=== PATIENT | male | born 1965 | race Caucasian/White ===

== ENCOUNTER 2016-12-25 13:01 | Observation (INO) | payer BC ==
--- NOTE | 2016-12-25 13:27 | ER Document Report ---
ED Medical Screen (RME) - General Chief Complaint: Facial Droop Stated Complaint: CHEST PAIN Time Seen by Provider: 12/25/16 13:22 Mode of Arrival: Ambulatory Information source: Patient, Relative TRAVEL OUTSIDE OF THE [place] IN LAST 30 DAYS: No - HPI Patient complains to provider of: Generalized weakness, left-sided facial droop Onset: Other - 9 AM Onset/Duration: Persistent Quality of pain: No pain Associated Symptoms: Weakness Exacerbated by: Denies Relieved by: Denies Similar symptoms previously: No Recently seen / treated by doctor: No Notes: 12/25/16 13:26 Patient is a 51-year-old male who presents to the emergency room complaining of generalized weakness, states it started around 9:00 this morning, when office staff at his office then told him he appeared to have facial asymmetry he presented to the emergency room for evaluation, he denies any chest pain or shortness of breath, he does report a mild headache, no history of similar symptoms previously, no extremity weakness or difficulty ambulating - Related Data Allergies/Adverse Reactions: No Known Allergies Allergy (Verified 12/25/16 13:05) Past Medical History Renal/ Medical History: Denies: Hx Peritoneal Dialysis Physical Exam - Vital signs Vitals: Temp Pulse Resp BP Pulse Ox 98.0 F 95 20 145/94 H 96 12/25/16 13:09 12/25/16 13:09 12/25/16 13:09 12/25/16 13:09 12/25/16 13:09 Course - Vital Signs Vital signs: Temp Pulse Resp BP Pulse Ox 98.0 F 95 20 145/94 H 96 12/25/16 13:09 12/25/16 13:09 12/25/16 13:09 12/25/16 13:09 12/25/16 13:09
--- NOTE | 2016-12-25 14:05 | RADIOLOGY REPORT (SQ) ---
EXAM DESCRIPTION: CT HEAD WITHOUT COMPLETED DATE/TIME: 12/25/2016 1:40 pm REASON FOR STUDY: left facial droop COMPARISON: None. TECHNIQUE: Axial images acquired through the brain without intravenous contrast. Images reviewed wi th bone, brain and subdural windows. Images stored on PACS. All CT scanners at this facility use dose modulation, iterative reconstruction, and/or weight based d osing when appropriate to reduce radiation dose to as low as reasonably achievable (ALARA). [facility]: Dose Right [facility]: CareDose [facility]: Dose Right [facility]: Teradose 4D [facility]: Smart b-datum RADIATION DOSE: mGy. LIMITATIONS: None. FINDINGS: VENTRICLES: Normal size and contour. CEREBRUM: No masses. No hemorrhage. No midline shift. Normal noel/white matter differentiation. N o evidence for acute infarction. CEREBELLUM: No masses. No hemorrhage. No alteration of density. No evidence for acute infarction. EXTRAAXIAL SPACES: No fluid collections. No masses. ORBITS AND GLOBE: No intra- or extraconal masses. Normal contour of globe without masses. CALVARIUM: No fracture. PARANASAL SINUSES: No fluid or mucosal thickening. SOFT TISSUES: No mass or hematoma. OTHER: No other significant finding. IMPRESSION: NORMAL BRAIN CT WITHOUT CONTRAST. TECHNICAL DOCUMENTATION: JOB ID: [id number] Quality ID # [id number]: Final reports with documentation of one or more dose reduction techniques (e.g., Au tomated exposure control, adjustment of the mA and/or kV according to patient size, use of iterative reconstruction technique) 2010 [email or web address]- All Rights Reserved
[2016-12-25 14:20] LABS: ABSOLUTE LYMPHOCYTES (AUTO) 1.9 10^3/uL (0.5-4.7); ABSOLUTE MONOCYTES (AUTO) 0.5 10^3/uL (0.1-1.4); BASOPHILS % (AUTO) 0.5 % (0-2); EOSINOPHILS % (AUTO) 0.4 % (0-6); HEMATOCRIT 45.3 % (37.9-51.0); HEMOGLOBIN 15.9 g/dL (13.5-17.0); HGB HCT DIFFERENCE 2.4; LYMPHOCYTES % (AUTO) 25.4 % (13-45); MEAN CORPUSCULAR HGB CONC 35.1 g/dL (32.0-36.0); MEAN CORPUSCULAR VOLUME 88 fl (80-97); MONOCYTES % (AUTO) 6.1 % (3-13); RED BLOOD COUNT 5.13 10^6/uL (4.35-5.55); RED CELL DISTRIBUTION WIDTH 12.8 % (11.5-14.0); SEGMENTED NEUTROPHILS % (AUTO) 67.6 % (42-78); WHITE BLOOD COUNT 7.4 10^3/uL (4.0-10.5)
[2016-12-25 14:25] LABS: PROTHROMBIN TIME 12.8 SEC (11.4-15.4)
[2016-12-25 14:26] LABS: PARTIAL THROMBOPLASTIN TIME 29.8 SEC (23.5-35.8)
--- NOTE | 2016-12-25 14:32 | RADIOLOGY REPORT (SQ) ---
EXAM DESCRIPTION: CHEST SINGLE VIEW COMPLETED DATE/TIME: 12/25/2016 1:47 pm REASON FOR STUDY: left facial droop COMPARISON: None. EXAM PARAMETERS: NUMBER OF VIEWS: One view. TECHNIQUE: Single frontal radiographic view of the chest acquired. RADIATION DOSE: NA LIMITATIONS: None. FINDINGS: LUNGS AND PLEURA: No opacities, masses or pneumothorax. No pleural effusion. MEDIASTINUM AND HILAR STRUCTURES: No masses. Contour normal. HEART AND VASCULAR STRUCTURES: Heart normal in size. Normal vasculature. BONES: No acute findings. HARDWARE: None in the chest. OTHER: No other significant finding. IMPRESSION: NO ACUTE RADIOGRAPHIC FINDING IN THE CHEST. TECHNICAL DOCUMENTATION: JOB ID: [id number]
[2016-12-25 14:44] LABS: ALANINE AMINOTRANSFERASE 80 U/L (21-72); ALBUMIN 4.4 g/dL (3.5-5.0); ALKALINE PHOSPHATASE 98 U/L (38-126); ANION GAP 12 (5-19); ASPARTATE AMINO TRANSFERASE 54 U/L (17-59); BILIRUBIN,DIRECT 0.4 mg/dL (0.0-0.4); BILIRUBIN,TOTAL 0.8 mg/dL (0.2-1.3); BLOOD UREA NITROGEN 9 mg/dL (7-20); CALCIUM 9.3 mg/dL (8.4-10.2); CARBON DIOXIDE 26 mmol/L (22-30); CHLORIDE 104 mmol/L (98-107); CREATINE KINASE 49 U/L (55-170); GLUCOSE 115 mg/dL (75-110); SODIUM 141.7 mmol/L (137-145); TOTAL PROTEIN 7.7 g/dL (6.3-8.2)
[2016-12-25 14:56] LABS: CREATINE KINASE MB 0.69 ng/mL (<4.55); TROPONIN I < 0.012 ng/mL
--- NOTE | 2016-12-25 16:11 | ER Document Report ---
ED General - General Chief Complaint: Facial Droop Stated Complaint: CHEST PAIN Time Seen by Provider: 12/25/16 13:22 Mode of Arrival: Ambulatory TRAVEL OUTSIDE OF THE [place] IN LAST 30 DAYS: No - HPI Patient complains to provider of: Facial droop Notes: Patient presents today for left facial droop. Patient was at his place of employment when his family employee states that he did not look well and was seen having left facial droop. Patient denies any past medical history denies any history of trauma denies any past medical history. Patient states symptoms occurred around 9-930. Patient presented to the ER at around 130. Patient at this time would not be a candidate for TPA. Patient also is complaining of dizziness. Patient states dizziness with moving around and also sitting still. Patient never had dizziness like this before. Denies any recent antibiotics denies any recent travel. - Related Data Allergies/Adverse Reactions: No Known Allergies Allergy (Verified 12/25/16 13:05) Home Medications: Current Home Medications Multivitamin [Daily Multiple Vitamin] 1 tab PO DAILY 12/25/16 [History] Past Medical History - General Information source: Patient, Relative - Social History Smoking Status: Never Smoker Chew tobacco use (# tins/day): No Frequency of alcohol use: None Drug Abuse: None Family History: Reviewed & Not Pertinent Patient has suicidal ideation: No Patient has homicidal ideation: No - Past Medical History Cardiac Medical History: Reports: Hx Hypertension Renal/ Medical History: Denies: Hx Peritoneal Dialysis Review of Systems - Review of Systems Constitutional: No symptoms reported EENT: No symptoms reported Cardiovascular: No symptoms reported Respiratory: No symptoms reported Gastrointestinal: No symptoms reported Genitourinary: No symptoms reported Male Genitourinary: No symptoms reported Musculoskeletal: No symptoms reported Skin: No symptoms reported Hematologic/Lymphatic: No symptoms reported Neurological/Psychological: Other - Facial droop dizziness -: Yes All other systems reviewed and negative Physical Exam - Vital signs Vitals: Temp Pulse Resp BP Pulse Ox 98.0 F 95 20 145/94 H 96 12/25/16 13:09 12/25/16 13:09 12/25/16 13:09 12/25/16 13:09 12/25/16 13:09 Interpretation: Normal - General General appearance: Appears well, Alert - HEENT Head: Normocephalic, Atraumatic Eyes: Normal Pupils: PERRL - Respiratory Respiratory status: No respiratory distress Chest status: Nontender Breath sounds: Normal Chest palpation: Normal - Cardiovascular Rhythm: Regular Heart sounds: Normal auscultation Murmur: No - Abdominal Inspection: Normal Distension: No distension Bowel sounds: Normal Tenderness: Nontender Organomegaly: No organomegaly - Back Back: Normal, Nontender - Extremities General upper extremity: Normal inspection, Nontender, Normal color, Normal ROM , Normal temperature General lower extremity: Normal inspection, Nontender, Normal color, Normal ROM , Normal temperature, Normal weight bearing. No: Zach's sign - Neurological Neuro grossly intact: Yes Cognition: Normal Orientation: AAOx4 Idris Coma Scale Eye Opening: Spontaneous [place] S[place] Coma Scale Verbal: Oriented Idris Coma Scale Motor: Obeys Commands Idris Coma Scale Total: 15 Speech: Normal Cranial nerves: Facial palsy Motor strength normal: LUE, RUE, LLE, RLE Sensory: Normal - Psychological Associated symptoms: Normal affect, Normal mood - Skin Skin Temperature: Warm Skin Moisture: Dry Skin Color: Normal Course - Re-evaluation Re-evalutation: 12/25/16 18:57 Coming in for evaluation of facial drooping. As asymmetrical smile. Concern for possible stroke. Patient was not TPA as that some of his dizziness and facial droop did resolve while here in the ER. Patient does have mild abnormality of his upper eyelid family is unsure if this is normal for the patient or not possibly early Traore's palsy however concern for stroke therefore referred to the hospitalist for further evaluation and admission - Vital Signs Vital signs: Temp Pulse Resp BP Pulse Ox 98.0 F 78 19 158/63 H 96 12/25/16 13:09 12/25/16 15:00 12/25/16 18:01 12/25/16 18:01 12/25/16 18:01 - Laboratory Result Diagrams: 12/25/16 14:03 12/25/16 14:03 Laboratory results interpreted by me: 12/25/16 14:03 Glucose 115 H ALT 80 H Creatine Kinase 49 L Discharge - Discharge Clinical Impression: Facial droop, Dizziness Condition: Good Disposition: ADMITTED OBSERVATION Admitting Provider: [facility] Admitted: [facility]
[2016-12-25] MEDS ORDERED: ACETAMINOPHEN 650 MG SUPP.RECT PR PRN (16:28)
[2016-12-25] MEDS ORDERED: ASPIRIN 81 MG TABLET, CHEWABLE PO ONE (16:39)
--- NOTE | 2016-12-25 16:57 | PDOC H&P ---
History of Present Illness Admission Date/PCP: ODALYS KEYS MD History of Present Illness: DIEGO WILLAMS is a 51 year old male with a past medical history of hypertension previously managed by diet restriction who presents to the service with asymmetric smile. The patient woke up this morning shaved and then went to work at his job at the [employer]. He got to work 1 of his coworkers told him that he looked bad smile was droopy. Get anything of it and proceeded to go to work. He had some issues with being able to count money while at work. [place] a little dizzy. Worker noted that he had a change in speech and felt that it was slurred: However, the patient did not notice anything. He denies ever having weakness. He said he left for lunch and went to go and see his in the first thing his told him with that his face was droopy. Therefore, he came into the hospital. In Emergency room underwent CT scan of the head which was negative. Patient currently denies any chest pain, shortness of breath, weakness, dizziness. Past Medical History Cardiac Medical History: Reports: Hypertension Past Surgical History Past Surgical History: Reports: None Social History Information Source: Patient, Relative Occupation: teller Lives with: Spouse/Significant other Smoking Status: Never Smoker Frequency of Alcohol Use: Occasional - 1-2 drinks a week either wine, liquor, or beer Hx Recreational Drug Use: No Hx Prescription Drug Abuse: No - Advance Directive Resuscitation Status: Full Code Family History Family History: DM - Father developed diabetes in childhood Parental Family History Reviewed: Yes Children Family History Reviewed: Yes Sibling(s) Family History Reviewed.: Yes Medication/Allergy Allergies/Adverse Reactions: No Known Allergies Allergy (Verified 12/25/16 13:05) Review of Systems Review of Systems: Review of systems is positive as per HPI in addition to this the patient has had diarrhea off and on the last couple of weeks. He denies chest pain shortness of breath, nausea, vomiting, constipation, diarrhea on a usual basis, blood in the stool, blood in the urine, coughing up blood, throwing up blood, heat or cold intolerance, dysuria, fevers, chills, unintentional weight loss, or arthritis Physical Exam Vital Signs: Temp Pulse Resp BP Pulse Ox 98.0 F 78 15 155/90 H 97 12/25/16 13:09 12/25/16 15:00 12/25/16 16:01 12/25/16 16:01 12/25/16 16:01 Intake & Output 12/24/16 12/25/16 12/26/16 06:59 06:59 06:59 Weight 87 kg Physical exam: General: This is a well-developed well-nourished overweight white male resting in bed currently in no acute distress HEENT normocephalic atraumatic. Trachea is midline. No submandibular lymphadenopathy. No scleral icterus. Mucous membranes. Dentition fair. Heart: Regular rate and rhythm no murmurs rubs or gallops. Lungs: Clear to auscultation bilaterally with equal rise and fall of the chest. Abdomen: Soft, nontender nondistended. Normoactive bowel sounds. Extremities: No clubbing cyanosis or edema. Neuro: Strength is 5 out of 5 in both the upper and lower extremities bilaterally. Has decreased sensation first branch of the trigeminal nerve as flattened nasolabial fold on the left. No Tongue deviation or uvular deviation. Finger to nose exam is intact. Heel-crespo maneuver is intact. Mixer Operator Raw Salt 5/5. Speech is fluent. Left ptosis. Shoulder shrug is intact. Pupils reactive. Results Laboratory Results: 12/25/16 14:03 12/25/16 14:03 12/25/16 12/25/16 14:03 14:03 WBC 7.4 RBC 5.13 Hgb 15.9 Hct 45.3 MCV 88 MCH 31.0 MCHC 35.1 RDW 12.8 Plt Count 173 Seg Neutrophils % 67.6 Lymphocytes % 25.4 Monocytes % 6.1 Eosinophils % 0.4 Basophils % 0.5 Absolute Neutrophils 5.0 Absolute Lymphocytes 1.9 Absolute Monocytes 0.5 Absolute Eosinophils 0.0 Absolute Basophils 0.0 Sodium 141.7 Potassium 4.0 Chloride 104 Carbon Dioxide 26 Anion Gap 12 BUN 9 Creatinine 0.70 Est GFR ( Amer) > 60 Est GFR (Non-Af Amer) > 60 Glucose 115 H Calcium 9.3 Total Bilirubin 0.8 AST 54 ALT 80 H Alkaline Phosphatase 98 Total Protein 7.7 Albumin 4.4 12/25/16 12/25/16 14:03 14:03 Creatine Kinase 49 L CK-MB (CK-2) 0.69 Troponin I < 0.012 Impressions: Chest X-Ray 12/25/16 13:25 IMPRESSION: NO ACUTE RADIOGRAPHIC FINDING IN THE CHEST. Head CT 12/25/16 13:25 IMPRESSION: NORMAL BRAIN CT WITHOUT CONTRAST. Assessment & Plan - Diagnosis (1) Facial droop Plan: CVA versus Traore's palsy. CT of the head was negative. Will send the patient for MRI. Give him a dose of aspirin. Check cholesterol levels in the morning. Allow permissive hypertension. (2) Hypertension Plan: Pressure at the bedside is 155/90. As needed hydralazine for those pressures over 180. - Time Time Spent: 50 to 70 Minutes Anticipated discharge: Home Within: within 24 hours
[2016-12-25] MEDS ORDERED: HYDRALAZINE HCL INJ/PF 20 MG/1 ML SDV IV PRN (16:58)
[2016-12-25] MEDS ORDERED: ENOXAPARIN SODIUM INJ 40 MG/0.4 ML DISP.SYRIN SUBCUT ONE (18:00)
--- NOTE | 2016-12-26 00:19 | EKG REPORT ---
SEVERITY:- OTHERWISE NORMAL ECG - SINUS RHYTHM BORDERLINE LEFT AXIS DEVIATION : Confirmed by: Landy Cortez 26-Dec-2016 00:18:38
[2016-12-26 06:42] LABS: CHOLESTEROL 182.64 mg/dL (0-200); Direct HDL 30 mg/dL (>40); TRIGLYCERIDES 142 mg/dL (<150)
[2016-12-26 06:53] LABS: DIRECT LDL 121 mg/dL (<100)
[2016-12-26] MEDS ORDERED: ENOXAPARIN SODIUM INJ 40 MG/0.4 ML DISP.SYRIN SUBCUT SCH (08:00)
[2016-12-26 08:30] VITALS: BP 146/84
--- NOTE | 2016-12-26 08:43 | RADIOLOGY REPORT (SQ) ---
EXAM DESCRIPTION: MRI HEAD COMBO COMPLETED DATE/TIME: 12/25/2016 11:09 pm REASON FOR STUDY: suspicion of stroke COMPARISON: None. TECHNIQUE: Multiplanar imaging includes noncontrasted T1, T2, FLAIR, and Diffusion with ADC map seq uences. Contrast enhanced T1 images. Images stored on PACS. CONTRAST TYPE AND DOSE: 20 mL Prohance. RENAL FUNCTION: GFR > 60. LIMITATIONS: None. FINDINGS: ANATOMY: No anomalies. Normal vascular flow voids. Pituitary fossa normal. CSF SPACES: Normal size and contour. No hemorrhage. CEREBRUM: A few high-signal intensity lesions scattered throughout the white matter on FLAIR imaging with distribution suggesting chronic microvascular ischemic change. Sulci and gyri normal in size and contour. No evidence of hemorrhage, mass or extraaxial fluid collection. No enhancing lesions. POSTERIOR FOSSA: No signal alteration. No hemorrhage. No edema, masses or mass effect. Internal audit ory Canals and cerebello-pontine angles normal. Increased signal in the left mastoid air cells. DIFFUSION: Focal area of restricted diffusion in the right lentiform nucleus. ORBITS: No masses. Globes normal. PARANASAL SINUSES: No fluid levels. Mucosa normal. OTHER: No other significant finding. IMPRESSION: 1. RESTRICTED DIFFUSION IN THE RIGHT LENTIFORM NUCLEUS CONSISTENT WITH ACUTE INFARCT. 2. INFLAMMATORY CHANGES IN THE LEFT MASTOID AIR CELLS. MUCOSAL NODULE IN THE LEFT MAXILLARY SINUS. 3. NO ENHANCING LESIONS. MINIMAL MICROVASCULAR ISCHEMIC CHANGE. TECHNICAL DOCUMENTATION: JOB ID: [id number] [employer]- All Rights Reserved
[2016-12-26] MEDS ORDERED: ASPIRIN 325 MG TABLET, ENT COATED PO SCH (10:00)
--- NOTE | 2016-12-26 10:11 | RADIOLOGY REPORT (SQ) ---
EXAM DESCRIPTION: MRA HEAD WITHOUT COMPLETED DATE/TIME: 12/25/2016 11:10 pm REASON FOR STUDY: suspect stroke COMPARISON: None. TECHNIQUE: Axial 3-D [id number]-aa-[id number] acquisition imaging performed through the brain in the area of t he ram[place] of [place]. Images reformatted using 3-D MIPS. LIMITATIONS: None. FINDINGS: SOURCE IMAGES: No unexpected findings on source images. No large masses. 3-D MIP: No aneurysm. No occlusions. No significant stenosis. OTHER: No other significant finding. IMPRESSION: NORMAL MRA OF THE [place] OF [place]. TECHNICAL DOCUMENTATION: JOB ID: [id number] [employer]- All Rights Reserved
--- NOTE | 2016-12-26 10:17 | RADIOLOGY REPORT (SQ) ---
EXAM DESCRIPTION: MRA NECK COMBO COMPLETED DATE/TIME: 12/25/2016 11:10 pm REASON FOR STUDY: suspect stroke COMPARISON: None. TECHNIQUE: MRA of the carotid and vertebral arteries was performed using 2D and 3D ebhl-od-iestqb te chniques without and with the use of gadolinium. 3-D MIPs performed at the workstation and stored on PACS. CONTRAST TYPE AND DOSE: 20 mL Prohance. RENAL FUNCTION: GFR > 60. LIMITATIONS: None. FINDINGS: GREAT VESSEL ORIGINS: Normal. No stenoses. VERTEBRAL ARTERIES: No stenoses. No evidence for aneurysm or dissection. RIGHT CAROTID SYSTEM: No significant stenosis. LEFT CAROTID SYSTEM: No significant stenosis. OTHER: No other significant finding. IMPRESSION: NORMAL MRA OF THE CAROTIDS WITH AND WITHOUT CONTRAST. COMMENT: Quality ID #[id number]: Measurements of distal internal carotid diameter were used as the denomina tor for stenosis measurement. TECHNICAL DOCUMENTATION: JOB ID: [id number] [employer]- All Rights Reserved
--- NOTE | 2016-12-26 17:20 | PDOC DISCHARGE SUMMARY ---
General - Admit/Disc Date/PCP Admission Date/Primary Care Provider: 12/25/16 16:28 ODALYS KEYS MD Discharge Date: 12/26/16 - Discharge Diagnosis (1) CVA (cerebral vascular accident) Is this a current diagnosis for this admission?: YesSummary: small right infarct seen on MRI with persistent left facial droop, no other residual deficits that warrant speech, occupational or physical therapy. maximize risk modification as outlined below. (2) Diabetes Is this a current diagnosis for this admission?: YesSummary: new diagnosis, A1c 6.5; will start metformin, counseled regarding diet, exercise and lifestyle changes; f/u with PCP in 2 weeks for further treatment recs (3) Hyperlipidemia Is this a current diagnosis for this admission?: YesSummary: LDL not at goal (<100), start statin Tx, f/u with PCP for f/u labs (4) Hypertension Is this a current diagnosis for this admission?: YesSummary: start ACEi for its benefits regarding stroke and HTN. will need f/u with PCP for further titration - Additional Information Resuscitation Status: Full Code Discharge Diet: Cardiac Discharge Activity: Activity As Tolerated Home Medications: Multivitamin [Daily Multiple Vitamin] 1 tab PO DAILY 12/25/16 Aspirin [Aspir-Kerri] 325 mg PO DAILY PRN #1 pkg 12/26/16 Atorvastatin Calcium 40 mg PO QHS #30 tablet 12/26/16 Lisinopril [Zestril] 5 mg PO DAILY #30 tablet 12/26/16 Metformin HCl [Glucophage] 500 mg PO BID #60 tablet 12/26/16 History of Present Illness Patient complains of: facial droop and slurred speech History of Present Illness: DIEGO WILLAMS is a 51 year old male with a past medical history of hypertension previously managed by diet restriction who presents to the service with asymmetric smile. The patient woke up this morning shaved and then went to work at his job at the [employer]. He got to work 1 of his coworkers told him that he looked bad smile was droopy. Get anything of it and proceeded to go to work. He had some issues with being able to count money while at work. [place] a little dizzy. Worker noted that he had a change in speech and felt that it was slurred: However, the patient did not notice anything. He denies ever having weakness. He said he left for lunch and went to go and see his in the first thing his told him with that his face was droopy. Therefore, he came into the hospital. In Emergency room underwent CT scan of the head which was negative. Patient currently denies any chest pain, shortness of breath, weakness, dizziness. Hospital Course Hospital Course: he was admitted and monitored overnight with good improvement in his symptoms. his workup revealed acute ischemic CVA on MRI, diabetes with Hg A1c 6.5, acc HTN and poorly controlled lipids. he was started on appropriate primary and secondary prevention medications, is hemodynamically stable for d/c home at this time. I spent over 30 mins at the bedside reviewing his evaluation, counseling regarding diet and lifestyle changes and answering his and his ' s questions to the best of my ability. s/s of stroke were discussed with instructions to present to the ED within 3hrs onset of symptoms. Physical Exam Vital Signs: Temp Pulse Resp BP Pulse Ox 97.2 F 68 16 146/84 H 98 12/26/16 12:45 12/26/16 12:45 12/26/16 12:45 12/26/16 12:00 12/26/16 12:45 Intake & Output 12/25/16 12/26/16 12/27/16 06:59 06:59 06:59 Intake Total 10 Balance 10 Weight 86.5 kg General appearance: PRESENT: no acute distress, well-developed, well-nourished Head exam: PRESENT: atraumatic, normocephalic Eye exam: PRESENT: EOMI, PERRLA. ABSENT: conjunctival injection, scleral icterus Mouth exam: PRESENT: moist, neck supple Neck exam: ABSENT: carotid bruit, tracheal deviation Respiratory exam: PRESENT: clear to auscultation mykel, unlabored Cardiovascular exam: PRESENT: RRR. ABSENT: systolic murmur Neurological exam: PRESENT: alert, awake, oriented to person, oriented to place , oriented to time, oriented to situation. ABSENT: CN II-XII grossly intact - left corner of his mouth remains down turned and left form maker plaster ever so slightly diminished to the Rt, o/w no deficits Results Laboratory Results: 12/26/16 05:33 Triglycerides 142 Cholesterol 182.64 LDL Cholesterol Direct 121 H VLDL Cholesterol 28.0 HDL Cholesterol 30 L Impressions: Brain MRI with MRA 12/25/16 00:00 IMPRESSION: NORMAL MRA OF THE [place] OF [place]. Head MRI 12/25/16 00:00 IMPRESSION: 1. RESTRICTED DIFFUSION IN THE RIGHT LENTIFORM NUCLEUS CONSISTENT WITH ACUTE INFARCT. 2. INFLAMMATORY CHANGES IN THE LEFT MASTOID AIR CELLS. MUCOSAL NODULE IN THE LEFT MAXILLARY SINUS. 3. NO ENHANCING LESIONS. MINIMAL MICROVASCULAR ISCHEMIC CHANGE. Neck MRA 12/25/16 00:00 IMPRESSION: NORMAL MRA OF THE CAROTIDS WITH AND WITHOUT CONTRAST. Chest X-Ray 12/25/16 13:25 IMPRESSION: NO ACUTE RADIOGRAPHIC FINDING IN THE CHEST. Head CT 12/25/16 13:25 IMPRESSION: NORMAL BRAIN CT WITHOUT CONTRAST. Qualifiers PATEINT BEING DISCHARGED WITH ANY OF THE FOLLOWING DIAGNOSIS?: Stroke VTE patient discharged on overlapping Therapy?: No Reason(s) for not prescribing Overlap Therapy:: Not indicated Stroke Pt being discharged on Anti-thrombolytic therapy?: Yes Stroke Pt being discharged on Anti-coagulation therapy?: No Reason(s) for not prescribing Anti-coagulation therapy:: Not indicated Stroke Pt being discharged on Statins?: Yes Plan Discharge Plan: f/u with PCP in one to two weeks Time Spent: Greater than 30 Minutes
== END 2016-12-26 13:15 | disposition home or self-care (01) ==
LOC: ER 13:01 → EH 16:28 → UNDOADMOB 16:59 → EH 16:59 → 3S 12-26 02:00
PROVIDERS: ADMIT Hospitalist; ATTEND Hospitalist
DX: I63.9 Cerebral infarction, unspecified (principal); R29.810 Facial weakness; E11.9 Type 2 diabetes mellitus without complications; E78.5 Hyperlipidemia, unspecified; I10 Essential (primary) hypertension; E66.3 Overweight; Z83.3 Family history of diabetes mellitus; Z68.30 Body mass index [BMI] 30.0-30.9, adult
CPT/HCPCS: 93005; 99285; 96372; 36415 ×2; 82553; 82550; 85025; 85610; 85730; 80053; 84484; 83036; 80061; 70553; 70544; 70549; 71010; 70450; 93010; A9576; J1650 ×2; J3490; G0378

== ENCOUNTER 2017-03-30 20:35 | Emergency (ER) | payer BC ==
[2017-03-30 20:59] VITALS: BP 150/79
--- NOTE | 2017-03-30 21:35 | RADIOLOGY REPORT (SQ) ---
EXAM DESCRIPTION: FOOT RIGHT COMPLETE COMPLETED DATE/TIME: 03/30/2017 9:26 pm REASON FOR STUDY: injury COMPARISON: None. NUMBER OF VIEWS: Three views. TECHNIQUE: AP, lateral and oblique radiographic images acquired of the right foot. LIMITATIONS: None. FINDINGS: MINERALIZATION: Normal. BONES: No acute fracture or dislocation. No worrisome bone lesions. JOINTS: No effusions. SOFT TISSUES: No soft tissue swelling. No foreign body. OTHER: No other significant finding. IMPRESSION: NEGATIVE STUDY OF THE RIGHT FOOT. NO RADIOGRAPHIC EVIDENCE OF ACUTE INJURY. TECHNICAL DOCUMENTATION: JOB ID: [id number] [employer]- All Rights Reserved
--- NOTE | 2017-03-30 22:30 | ER Document Report ---
HPI - HPI Patient complains to provider of: stubbed toe, nail lifted Onset: Just prior to arrival Onset/Duration: Sudden Quality of pain: Throbbing Pain Level: 3 Context: 51 yo male stubbed left great toe and the thick nail partially lifted. throbbing Associated Symptoms: None Exacerbated by: Denies Relieved by: Denies - ROS ROS below otherwise negative: Yes Systems Reviewed and Negative: Yes All other systems reviewed and negative - DERM Skin Color: Normal, [place] Past Medical History - General Information source: Patient - Social History Smoking Status: Never Smoker Frequency of alcohol use: None Drug Abuse: None Lives with: Spouse/Significant other Family History: Reviewed & Not Pertinent - Past Medical History Cardiac Medical History: Reports: Hx Hypertension Renal/ Medical History: Denies: Hx Peritoneal Dialysis Surgical Hx: Negative Vertical Provider Document - CONSTITUTIONAL Agree With Documented VS: Yes Exam Limitations: No Limitations General Appearance: No Apparent Distress - INFECTION CONTROL TRAVEL OUTSIDE OF THE [place] IN LAST 30 DAYS: No - RESPIRATORY O2 Sat by Pulse Oximetry: 95 - MUSCULOSKELETAL/EXTREMETIES Musculoskeletal/Extremeties: MAEW, FROM, Tender - dorsal left great toe, small bruise at nailbed. 2/3 of nail is lifted, full atttachment at the nail bed. - NEURO Level of Consciousness: Awake, Alert Motor/Sensory: No Motor Deficit, No Sensory Deficit Course - Re-evaluation Re-evalutation: 04/01/17 15:53 late entry, xray negative per rad - Vital Signs Vital signs: Temp Pulse Resp BP Pulse Ox 98.0 F 95 16 150/79 H 95 03/30/17 20:57 03/30/17 20:57 03/30/17 20:57 03/30/17 20:57 03/30/17 20:57 Discharge - Discharge Clinical Impression: Partial left great toenail lifting Condition: Good Disposition: HOME, SELF-CARE Instructions: Anti-Inflammatory Medication ([facility]), Avulsed Nail ([facility]) Additional Instructions: post op shoe for comfort soak in warm soapy water daily keep covered to avoid further injury keep nail clipped or filed as it grows out see enamel drier for any problems to er if worse Please complete the patient satisfaction survey if you get one, and return it.. If you do not receive a survey, then you can go to the [facility] website, [email or web address] and place your comments about your very good care. Thank you very much. It was a pleasure being your medical provider today. Prescriptions: Ibuprofen [Motrin 800 mg Tablet] 800 mg PO Q8HP PRN #30 tablet PRN Reason: Referrals: BENNIE SALAZAR DPM [ACTIVE STAFF] - Follow up as needed
[2017-03-31] MEDS ORDERED: IBUPROFEN 800 MG TABLET PO ONE (00:02)
== END 2017-03-31 00:10 | disposition home or self-care (01) ==
LOC: ER 20:35
DX: S91.209A Unspecified open wound of unspecified toe(s) with damage to nail, initial encounter (principal); W22.8XXA Striking against or struck by other objects, initial encounter
CPT/HCPCS: 99283